=== PATIENT | male | born 1970 | race Caucasian/White ===

== ENCOUNTER 2021-08-02 11:01 | Emergency (ER) | payer BC, OTHER | END 2021-08-02 13:57 | disposition home or self-care (01) | LOC: ER1 11:01 | DX: S39.012A Strain of muscle, fascia and tendon of lower back, initial encounter (principal); R03.0 Elevated blood-pressure reading, without diagnosis of hypertension; F17.200 Nicotine dependence, unspecified, uncomplicated; Z88.2 Allergy status to sulfonamides; W19.XXXA Unspecified fall, initial encounter | CPT/HCPCS: 72110; 81001; 99283 ==